=== PATIENT | male | born 1955 | race Caucasian/White ===

== ENCOUNTER → 2019-03-21 | Outpatient (CLI) | payer SELFPAY ==
--- NOTE | 2019-03-21 17:07 | PCVCIMAG ---
APPROVED REPORT Study performed: 03/21/2019 16:06:42 Exam: Dobutamine Stress Echo Indication: ABN EKG, Dyspnea Patient Location: Echo lab Stress Nurse: Marta Torres RN Room #: 2 Status: routine Ht: 5 ft 7 in HR: 71 bpm BP: 128/80 mmHg Rhythm: NSR Medical History Medical History: Abn,EKG, HTN, Cardiac Risk Factors: FHX of CAD, HTN Previous Cardiac Procedures: none Pretest Chest Pain Characteristics: No chest pain Exercise History: Physically active Procedure The patient underwent an Exercise Stress Test using the Jairon Protocol. Blood pressure, heart rate, and EKG were monitored. An Echocardiogram was performed by manufacturing production technician in four stages in quad fashion. At peak stress, four selected images were obtained and placed side by side with resting images for comparison. Stress Test Details Stress Test: Exercise stress testing was performed using a Jairon protocol. HR Resting HR: 71 bpmMax Heart Rate (APMHR): 158 bpm Max HR Achieved: 128 bpmTarget HR (85% APMHR): 80 bpm % of APMHR: 81 Recovery HR: 93 bpm HR response to stress: Normal HR response to stress BP Resting BP: 128/80 mmHg Max BP: 148/74 mmHg Recovery BP: 140/80 mmHg BP response to stress: Normal blood pressure response to stress. ECG Resting ECG: Sinus Rhythm Stress ECG: Sinus Rhythm ST Change: Non-ischemic Maximum ST Deviation: -1.3 mm Arrhythmia: Rare PVC, Rare couplet PVC Recovery ECG: Sinus Rhythm Recovery ST Change: Non-ischemic Recovery ST Deviation: -0.5 mm Recovery Arrhythmia: Rare PVC Clinical Reason for Termination: Maximal effort Stress Symptoms: Fatigue Exercise duration: 11 min 02 sec Highest Stage Achieved: Stage 4: 4.2 mph at 16% grade. Exercise capacity: 13.7 METs Overall Exercise Capacity for Age: Good Scale: Active Angina Score: None No complications. Stress ECG Conclusion The patient exercised according to the JAIRON protocol for 11:02 mins; achieving a work level of 13.7 METS. The resting heart rate of 71 bpm brittani to a maximum heart rate of 160 bpm. This value represent 101% of the maximal, age-predicted heart rate. The resting blood pressure of 128/80 mmHg, brittani to a maximum blood pressure of 148/74 mmHg. The exercise test was stopped due to fatigue . Giraldo Treadmill Score is 17.5 which is Low risk. Pre-Stress Echo The resting Echocardiogram showed normal left ventricular contractility with an estimated Ejection Fraction of about 55-60%. Normal wall motion in all segments on baseline images. Post-Stress Echo The stress Echocardiogram showed normal left ventricular contractility with an estimated Ejection Fraction of about 65-70%. Normal augmentation of wall motion in all segments on post stress images. Clinical No clinical or ECG evidence for ischemia. Conclusion Clinical Response: Non-ischemic Exercise Capacity: Superior Stress ECG Response: Non-ischemic Stress Echo Images: Non-ischemic No clinical, EKG or echocardiographic evidence for ischemia. No echocardiographic evidence for exercise induced ischemia. Normal stress echocardiogram with maximal exercise stress. <Conclusion> No clinical, EKG or echocardiographic evidence for ischemia. No echocardiographic evidence for exercise induced ischemia. Normal stress echocardiogram with maximal exercise stress.
== END | disposition home or self-care (01) ==
LOC: PCVCIMAG 16:11
PROVIDERS: ATTEND Family Medicine
DX: R94.31 Abnormal electrocardiogram [ECG] [EKG] (principal); R06.00 Dyspnea, unspecified
CPT/HCPCS: 93325; 93351